=== PATIENT | female | born 1995 | race Caucasian/White ===

== ENCOUNTER 2021-07-19 08:17 | Outpatient (RCR) | payer BC, SELFPAY ==
--- NOTE | 2021-07-19 09:49 | PTOPEVAL ---
PHYSICAL THERAPY INITIAL EVALUATION. Thank you for referring Herrera Sanchez to [facility].? The patient is scheduled to be seen for therapy? 2x/week for 4 weeks. Please review, sign, date and return this plan of care RIOS. I agree with and certify that the following plan of care is medically necessary. Referring Physician Date Attending Provider: Andriy Avina, MD *PT Outpatient Evaluation Start: 07/19/21 Evaluation Information Diagnosis Lumbosacral radiculopathy Onset 1-2 years Subjective Information Pt states she is almost Query Text:As Reported By Patient/ certain she has sciatica, she Family states she went to a chiropractor last year and they diagnosed her with piriformis syndrome. She states the chiropractor helped a little bit, but not much. She states she got a cortisone about 3 weeks ago and thinks that helped a little. Pt states it hurts the worst when she lays down, and best when she is walking. She reports pain only on the left side that starts in the hip and goes all the way down into the toes. She states she has decreased her activity routine from 6 days a week to now 2-3 days a week and only works on her upper body, which has made things a little bit better. Pt states she feels like today in the best day she has had pain sepulveda in a long time. Pain Assessment Lower Back Reported Pain Level 3 Pain Description Radiating,Sharp,Throbbing Pain Radiation Left Leg Pain Frequency Continuous Lowest Pain Intensity 3 Greatest Pain Intensity 8 Pain Aggravating Factors Bending,Supine Lumbar ROM Lumbar Flexion Active Mid Abraham Lumbar Extension (0-40) 20 Lateral Flexion Equal ROM, Pt reports Query Text:Active Hands to: increased tightness and pain with L lateral flexion Lateral Rotation Right (0-45) 45 Lateral Rotation Left (0-45) 25 Lumbar ROM 50% of Normal Normal Lumbar Segmental Motion Yes Lower Extremity Range of Motion General Lower Extremity Range of Motion WFL/Left,
--- NOTE | 2021-07-23 15:59 | PCPTNOTE ---
Patient did not show up for scheduled appointment this date. Called patient and left voicemail with instructions to reschedule.
--- NOTE | 2021-08-15 16:23 | PCPTNOTE ---
Called and left a voicemail no patient regarding no scheduled appointment. Told patient to call to schedule if she would like to continue with therapy.
--- NOTE | 2021-08-24 15:51 | PCPTNOTE ---
Attending Provider: Andriy AvinaMD Patient:Herrera Sanchez Date of :1995 Patient has not returned for any further treatments since 07/19/2021, therefore she will be discharged at this time. Patient?s initial visit was on 07/19/2021 08:30 and she had a total of 1 visits. Our office has made multiple unsuccessful attempts to contact her to schedule additional visits. Thank you for referring this patient to [facility]. Please review, sign, date and return this discharge summary RIOS. I have been updated about the patient's current status and I agree with discharge from the above service at this time. Referring Physician Date
== END 2021-08-27 12:20 | disposition home or self-care (01) ==
LOC: ANHPT 08:17
PROVIDERS: PCP Family Medicine; Visit Provider Family Medicine
DX: M54.17 Radiculopathy, lumbosacral region (principal)
CPT/HCPCS: 97110; 97140; 97161

== ENCOUNTER 2022-08-25 09:46 | Outpatient (CLI) | payer BC, SELFPAY ==
--- NOTE | ~2022-08-25 | MR_ITS ---
EXAMINATION: MR lumbar spine wo con DATE: 08/25/2022 10:24 INDICATION: lumbosacral radiculopathy . TECHNIQUE: Magnetic resonance imaging (MRI) of the lumbar spine was performed without intravenous con trast. Sequences included sagittal T2-weighted FSE, sagittal T2-weighted FS FSE, sagittal T1-weighted FSE, and axial T2-weighted FSE. COMPARISON: None FINDINGS: Lumbar scoliosis. The last fully formed and hydrated disc is designated L5-S1. The marrow s ignal is benign and homogenous. Conus terminates at L1. Disc height loss and dehydration at L4-5 and L5-S1. Schmorl's node in S1. Hemangiomas in S2 and S3. The following disc levels are specifically dis cussed: T11-T12: The disc does not extend beyond the endplate margin. There is no facet joint osteoarthritis. There is no neural foraminal stenosis. There is no central canal stenosis. T12-L1: The disc does not extend beyond the endplate margin. There is no facet joint osteoarthritis. There is no neural foraminal stenosis. There is no central canal stenosis. L1-L2: The disc does not extend beyond the endplate margin. There is no facet joint osteoarthritis. T here is no neural foraminal stenosis. There is no central canal stenosis. L2-L3: 2 mm right foraminal protrusion. There is mild facet joint osteoarthritis. There is no neural foraminal stenosis. There is no central canal stenosis. L3-L4: 3 mm right foraminal protrusion causing mild right inferior neural foraminal narrowing. There is no facet joint osteoarthritis. There is no left neural foraminal stenosis. There is no central can al stenosis. L4-L5: Moderate diffuse bulge with a 4 mm central protrusion. There is mild facet joint osteoarthriti s. There is no neural foraminal stenosis. There is mild central canal stenosis. L5-S1: The disc does not extend beyond the endplate margin. There is no facet joint osteoarthritis. T here is no neural foraminal stenosis. There is no central canal stenosis. IMPRESSION: 1. Lumbar scoliosis. 2. 3 mm right foraminal protrusion causing mild right inferior neural foraminal narrowing at L3-4. 3. Moderate degenerative disc disease at L4-5 with a 4 mm central protrusion causing mild central can al stenosis. 4. Multilevel mild facet arthropathy. Reviewed, dictated and finalized at location K. IMPRESSION: 1. Lumbar scoliosis. 2. 3 mm right foraminal protrusion causing mild right inferior neural foraminal narrowing at L3-4. 3. Moderate degenerative disc disease at L4-5 with a 4 mm central protrusion ca using mild central canal stenosis. 4. Multilevel mild facet arthropathy.
== END 2022-08-25 09:47 | disposition home or self-care (01) ==
PROVIDERS: PCP Family Medicine; Visit Provider Family Medicine
DX: M54.17 Radiculopathy, lumbosacral region (principal); M51.36 Other intervertebral disc degeneration, lumbar region
CPT/HCPCS: 72148